=== PATIENT | male | born 1950 | race Caucasian/White ===

== ENCOUNTER → 2022-03-22 12:24 | Outpatient (BNVA) | payer MEDICARE, OTHER, SELFPAY | PROVIDERS: PCP Pediatrics; Visit Provider Internal Medicine Endocrinology, Diabetes & Metabolism | DX: E29.1 Testicular hypofunction (principal); R53.83 Other fatigue; G47.33 Obstructive sleep apnea (adult) (pediatric); Z99.89 Dependence on other enabling machines and devices | CPT/HCPCS: 99202 ==

== ENCOUNTER 2022-04-12 09:14 | Outpatient (REF) | payer MEDICARE, OTHER, SELFPAY ==
--- NOTE | ~2022-04-12 | MR_ITS ---
EXAMINATION: MR BRAIN WITHOUT AND WITH CONTRAST CLINICAL INFORMATION: Testicular hyperfunction. COMPARISON: There are no prior studies available for comparison. TECHNIQUE: Multiplanar, multisequence MRI of the brain was obtained before and after the intravenous administration of 5 mL Gadavist. FINDINGS: No abnormal focus of decreased differential enhancement is seen within the pituitary gland. The infundibulum is midline. The cavernous sinuses opacify symmetrically. The internal carotid artery flow-voids are maintained. The optic chiasm is normal. No suprasellar soft tissue abnormality is seen. The sella turcica is normal. No diffusion abnormalities are identified to suggest an acute or subacute infarct. The ventricles and sulci are commensurately prominent consistent with diffuse volume loss. 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 A similar smaller area is noted posteromedially in the right cerebellar hemisphere. There are areas of hyperintense T2 and FLAIR signal in the subcortical white matter, most consistent with chronic microvascular ischemic changes. No extra-axial fluid collections are noted. The brainstem appears normal. On postcontrast imaging, there is no abnormal parenchymal or leptomeningeal enhancement. There is no evidence of hemorrhage. The craniocervical junction, marrow signal, and midline structures are normal. There has been a right lens extraction. The mastoid air cells and the paranasal sinuses are well-aerated. MR/MR head/brain wo/w con IMPRESSION: 1. No pituitary abnormality is demonstrated. 2. There are no acute bleeds or infarcts. 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 3. There is diffuse volume loss and there are chronic microvascular ischemic changes. There are no masses or areas of abnormal enhancement.
== END 2022-04-12 09:15 | disposition home or self-care (01) ==
LOC: HO.MRI 09:14
PROVIDERS: Visit Provider Internal Medicine Endocrinology, Diabetes & Metabolism
DX: E29.1 Testicular hypofunction (principal)
CPT/HCPCS: 70553; A9585

== ENCOUNTER → 2022-05-31 10:26 | Outpatient (BNVA) | payer MEDICARE, OTHER, SELFPAY | PROVIDERS: PCP Pediatrics; Visit Provider Internal Medicine Endocrinology, Diabetes & Metabolism | DX: E29.1 Testicular hypofunction (principal) | CPT/HCPCS: 99212 ==

== ENCOUNTER 2022-10-27 09:46 | Outpatient (REF) | payer MEDICARE, OTHER, SELFPAY ==
[2022-10-27 10:47] LABS: Hematocrit 43.1 % (42.0-52.0)
[2022-10-27 12:41] LABS: Ferritin 94 ng/mL (20-250)
[2022-10-27 12:42] LABS: Prostate Specific Antigen 0.98 ng/mL (<0.05-4.0)
[2022-10-29 10:39] LABS: Follicle Stimulating Hormone 8.4 mIU/mL (1.6-8.0); Lutenizing Hormone 8.7 mIU/mL (1.6-15.2); Prolactin 6.8 ng/mL (2.0-18.0)
[2022-11-01 20:28] LABS: Testosterone, Free 31.3 pg/mL (30.0-135.0); Testosterone, Total 239 ng/dL (250-1100)
== END 2022-10-27 09:47 | disposition home or self-care (01) ==
LOC: HO.LAB 09:46
PROVIDERS: Visit Provider Internal Medicine Endocrinology, Diabetes & Metabolism
DX: E29.1 Testicular hypofunction (principal); Z12.5 Encounter for screening for malignant neoplasm of prostate
CPT/HCPCS: 82728; 83001; 83002; 84146; 84153; 84402; 84403; 85014; 85018

== ENCOUNTER → 2022-11-02 08:28 | Outpatient (BNVA) | payer MEDICARE, OTHER, SELFPAY | PROVIDERS: PCP Pediatrics; Visit Provider Internal Medicine Endocrinology, Diabetes & Metabolism | DX: E29.1 Testicular hypofunction (principal) | CPT/HCPCS: 99212 ==

== ENCOUNTER 2023-06-06 08:47 | Outpatient (AMB) | payer MEDICARE, OTHER, SELFPAY ==
--- NOTE | 2023-06-06 08:49 | A.OFFVIS_ITS ---
Intake Vital Signs 06/06/23 08:50 Height 6 ft 2 in Weight 276 lb 14.409 oz BMI 35.5 BP 122/52 L Blood Pressure Location Lt brachial Position Sitting Pulse 55 Pulse Source Pulse Oximeter Intake Visit Reasons: f/u hypogonadism/CONFIRMED Intake Note: Patient present today for Hypogonadism follow up visit. 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 First diagnosed with Hypogonadism recently with labs revealing low testosterone .C/O fatigue Not started on Testosterone supplementation . Currently not achieving spontaneous am erections, and unable to achieve erection when desired. Reports low libido for some time . Decreased facial hair and shaving frequency. Denies any change in size or shape of testicles. Denies penile discharge or scrotal tenderness. Denies any history of mumps orchitis. Had any head trauma 1 yr ago . Has history of GERARD using CPAP . with children who were conceived spontaneously. Sense of smell intact. Denies headache or visual changes, gynecomastia or galactorrhea. Denies orthostatic symptoms, weight loss. Denies change in size of hands or feet. Denies hair loss, weight gain, cold intolerance. 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 Blood work done at [facility] by urologist . Better energy but libido not better [facility] Medical History Hypogonadism, testicular Surgical History History of left hip replacement History of nasal surgery History of surgery History of total left knee replacement Hx of appendectomy Family History Mother Heart disease Intracranial aneurysm Father Heart disease Diabetes Sister Osteoporosis Social History Household Members: Significant Other Household Members Other:: Aaliyah , partner 20+ yrs Alcohol intake: current Alcohol intake frequency: holidays/special occasions only Patient Tobacco Use Status: Never used Tobacco Physical Exam Const Other: Rectal examination reveals normal smooth prostate Assessment & Plan Assessment & Plan (1) Hypogonadism, testicular: Code(s): E29.1 - Testicular hypofunction Plan: This 71-year-old male with a history of mildly low low testosterone level. 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 Patient currently on Jatenzo 237 mg b.i.d. Plan is to obtain labs that were obtained from [facility] reference lab including testosterone, CBC PSA. Depending on testosterone level could try to titrate slightly to increase libido. Coding Level of Care Code Est Pt Level 3 (99231) Diagnoses Hypogonadism, testicular E29.1
[2023-06-06 08:50] VITALS: BP 122/52; PULSE 55; BMI 35.5
== END 2023-06-06 09:26 | disposition home or self-care (01) ==
PROVIDERS: PCP Pediatrics; Visit Provider Internal Medicine Endocrinology, Diabetes & Metabolism
DX: E29.1 Testicular hypofunction (principal)
CPT/HCPCS: 99213

== ENCOUNTER → 2023-06-06 08:47 | Outpatient (BNVA) | payer MEDICARE, OTHER, SELFPAY | PROVIDERS: PCP Pediatrics; Visit Provider Internal Medicine Endocrinology, Diabetes & Metabolism | DX: E29.1 Testicular hypofunction (principal); Z79.899 Other long term (current) drug therapy | CPT/HCPCS: 99212 ==

== ENCOUNTER 2023-11-16 08:40 | Outpatient (REF) | payer MEDICARE, OTHER, SELFPAY ==
[2023-11-16 09:54] LABS: Hematocrit 46.4 % (42.0-52.0); Hemoglobin 15.2 g/dl (14.0-18.0)
[2023-11-16 10:43] LABS: Prostate Specific Antigen 1.26 ng/mL (<0.05-4.0)
[2023-11-22 08:28] LABS: Testosterone, Free 18.7 pg/mL (30.0-135.0); Testosterone, Total 88 ng/dL (250-1100)
== END 2023-11-16 08:41 | disposition home or self-care (01) ==
LOC: HO.LAB 08:40
PROVIDERS: PCP Pediatrics; Visit Provider Internal Medicine Endocrinology, Diabetes & Metabolism
DX: Z12.5 Encounter for screening for malignant neoplasm of prostate (principal); E29.1 Testicular hypofunction
CPT/HCPCS: 36415; 84153; 84402; 84403; 85014; 85018